=== PATIENT | male | born 1980 | race Caucasian/White ===

== ENCOUNTER 2024-06-26 00:22 | Emergency (ER) | payer OTHER ==
[~2024-06-26] VITALS: Ht 172.7 cm; Wt 113.4 kg
[2024-06-26] MEDS ORDERED: Hair, Skin & N1 EACH PO (00:32)
[2024-06-26] MEDS ORDERED: NS 1,000 ML IV ONE (00:39)
[2024-06-26] MEDS ORDERED: HYDROmorphone HCl/Pf 1MG SYR IV ONE (00:55)
[2024-06-26] MEDS ORDERED: RX Prepack 6 Tabs Oxycodone 5mg UD ONE (01:50)
[2024-06-26] MEDS ORDERED: HYDR1TAB94 PO ×2 (01:50→10:49)
== END 2024-06-27 03:06 | disposition home or self-care (01) ==
LOC: ER 00:22
DX: S09.90XA Unspecified injury of head, initial encounter (principal); S82.842A Displaced bimalleolar fracture of left lower leg, initial encounter for closed fracture; W22.01XA Walked into wall, initial encounter; Z79.899 Other long term (current) drug therapy
CPT/HCPCS: 27840; 73590; 73600; 99284-25; A9270; J1171; J7030